=== PATIENT | male | born 1975 | race Caucasian/White ===

== ENCOUNTER 2018-05-13 09:07 | Emergency (ER) | payer MEDICAID, SELFPAY ==
[2018-05-13 09:09] VITALS: BP 153/97; PULSE 99; RESP 18; TEMP 36.9; O2SAT 99; BMI 25.7
--- NOTE | 2018-05-13 09:14 | VDLE_ITS ---
Reason For Study: pain RIGHT LEFT GSV is normal. GSV is normal. CFV is compressible, spontaneous, phasic, CFV is compressible, spontaneous, phasic, competent and demonstrates normal competent, and demonstrates normal augmentation. augmentation. FV is compressible, spontaneous, phasic, FV is compressible, spontaneous, phasic, competent and demonstrates normal competent and demonstrates normal augmentation. augmentation. POP V is compressible, spontaneous, phasic, POP V is compressible, spontaneous, phasic, competent and demonstrates normal competent and demonstrates normal augmentation. augmentation. T/P Trunk is compressible. T/P Trunk is compressible. PTV is compressible. PTV is compressible. RT PerV is compressible. LT PerV is compressible. Procedure Exam performed portable in ED. The exam was diagnostic. A preliminary report was called and/or faxed to an ED physician. Interpretation Summary Deep veins of the lower extremities are bilaterally patent and compressible segmentally. There is no evidence of deep vein thrombosis on either side. Valvular competence appears intact within the proximal deep venous systems bilaterally. The greater saphenous veins appear bilaterally patent and compressible segmentally. Ordering Physician: Harry Will Performed By: James Galan RVT
--- NOTE | 2018-05-13 09:16 | ED.VISSUMM ---
- ER Visit Summary Date of Service: 05/13/18 Chief Complaint: Left eye pain/blurriness; Bilateral foot swelling History of Present Illness: The patient is a 42 M who states that he woke up yesterday with left eye pain. He states it has been blurry. He is unable to open the eye because of the pain. He does wear contacts but no corrective contact lenses. He denies any trauma. Denies fevers. He states that he has bilateral foot swelling and pain. He states that he walked a long way and just boots. He states he was stranded in [place]. Physical Examination: Vital signs are reviewed. HEENT exam reveals left corneal diffuse injection. His ocular motions are intact without pain. Pupils are equally round reactive. He does have a corneal ulceration at the 1 o'clock position. Bilateral leg exam reveals edema from the mid tibia down which is mild. He has 2+ pulses of each feet. He does have some slight erythema with some superficial abrasions of each foot. There are no blisters or ulcers. Test Results: Duplex ultrasound negative for DVT Emergency Department Course and Treatment: I discussed this with Dr. Lo with ophthalmology. He recommended gentamicin drops. He will see the patient at 1 PM this afternoon at the [facility]. He has no DVT of his legs but he does have swelling with some redness on the feet. I will give him Bactrim for this. He will need follow-up as described. Treatment Plan: [] Disposition: Discharge Impression: Corneal ulcer, left eye Cellulitis, foot This note was generated with [employer]gression dictation software. It may contain incorrect words, spelling, and punctuation that were not noted in review of the chart prior to signing ED Disposition - Plan for ED Patient: Chief Complaint: Eye Problem Referrals: Maximino Reyes [Primary Care Provider] -
[2018-05-13] MEDS: Fluorescein 1 MG STRIP 1 STRIP LEFT EYE (09:19)
[2018-05-13] MEDS: Tetracaine 0.5% Ophthalmic Bottle 1 DRP LEFT EYE (09:19)
[2018-05-13] MEDS: Gentamicin Sulfate 1 OPTH.BTL 2 DRP LEFT EYE (09:42)
[2018-05-13 10:37] VITALS: BP 138/103; PULSE 94; RESP 18; O2SAT 98
--- NOTE | 2018-05-13 10:38 | ED.DEP ---
ED Disposition - Plan for ED Patient: Disposition: Home or Assisted Living Chief Complaint: Eye Problem Instructions: ED Ulcer Cornea Prescriptions: Smz/Tmp Ds [Bactrim Ds] 1 tab PO BID #14 tab Referrals: Maximino Reyes [Primary Care Provider] -
[2018-05-13] MEDS: Smz/Tmp Ds Tablet 1 TABLET PO (10:58)
== END 2018-05-13 11:02 | disposition home or self-care (01) ==
PROVIDERS: Emergency Provider Emergency Medicine; Family Provider Family Medicine; PCP Family Medicine
DX: H16.002 Unspecified corneal ulcer, left eye (principal); L03.116 Cellulitis of left lower limb; L03.115 Cellulitis of right lower limb; B96.89 Other specified bacterial agents as the cause of diseases classified elsewhere; Z72.0 Tobacco use
CPT/HCPCS: 93970; 99283